=== PATIENT | female | born 1970 | race Caucasian/White ===

== ENCOUNTER 2017-09-23 10:00 | Outpatient (RCR) | payer OTHER, SELFPAY ==
--- NOTE | 2017-04-24 10:09 | HP.PTEVAL ---
Patient's Visit Information SUZY CONTRERAS is a 47 year old F referred to Physical Therapy by Zac Henriquez DR.JDIETR2 with a diagnosis of Left Frozen Shoulder. Date of Evaluation: 04/24/17 Physical Therapist: Felicitas Vazquez - Visit Plan Frequency: 2x /Week Duration: 4 Weeks Plan: Focus on left UE ROM and strength - Subjective Subjective: November 25, 2016- black lab pulled her leash and went the other way. The left shoulder didn't hurt right away but she dislocated finger lead to frozen shoulder. Shoulder started bothering her a couple of months ago. Had a cortisone injection 2 weeks ago and its better now. gave her some exercises and she started some. Worst: 07/29 Agg: movement, cold. Pain is located in the biceps to the elbow and reports sharp pains. Mostly dull and achy in the actually shoulder itself. Has arthritis- works at [employer] in [place]- is still working. Right hand dominate. If she uses her left its more for stability than lifting. Eases: heat Best: 04/30. Sleep: not disturbed anymore. No N/T in the fingers. Pain radiates up to the base of the skull- No increase in [place], blurred vision, dizziness. Very active- [place] and is always on her feet- has animals. Feels that she is 50% back to normal from injury. No x-rays or MRI of the shoulder. PMHx: none, Meds: none. - Objective Posture: FH, RS, increased guarding of the left UE. Palpation: tender along bicipital groove, deltoid, and down the tricep/bicep to the elbow. ROM: finger dexterity: WNL with ring finger exception (seeing OT), Elbow: WNL, Shoulder AROM: Flexion: 130 degrees, Abductin: 110 degrees, IR:to belt line, ER: 0 degrees. PROM: flexion: 170 degrees, Abduction: to ear, IR: to belt, ER: 10 degrees. Strength: Elbow: 4+/5, Shoulder: 4/5 in neutral position - Goals Goal 1:: Patient will be I with HEP and progression Goal Time Frame: 4-6 Weeks Goal 2:: Patient will demo full AROM of the left shoulder where deficit to ease ADL's. Goal Time Frame: 4-6 Weeks Goal 3:: Patient will report 0/10 pain for 1 week Goal Time Frame: 4-6 Weeks Goal 4:: Patient will demo 5/5 strength in UE Goal Time Frame: 4-6 Weeks - Rehabilitation Potential Physical Therapy Diagnosis: Patient presents with hypomobility- she has decreased ROM, strength and muscular endurance leading to poor posture and increased pain with ADL's. Rehabilitation Potential: Good - Anticipated Interventions Patient/Client Instruction: Educate patient on: Benefits of Fitness Program For the Purpose of:: To increase tolerance to activity/condition/position Therapeutic Exercise to Include: Strength training, Endurance training, Body mechanics, Postural training, Passive ROM, Active ROM, Scapular Strength/Stabilization For the Purpose of:: To improve muscle performance and motor function TENS: Yes Cryotherapy (ice pack, ice massage): Yes Thermo therapy (hot pack): Yes Ultrasound (thermal/non thermal): Yes For the Purpose of:: To decrease pain Thank you for the opportunity to evaluate your patient. For Medicare and Medicare HMO plans, please review the plan of care and approve it. It will need to be FAXED BACK to us at [phone] for Medicare purposes. Please let me know if there are questions or concerns regarding this plan of care. Physician Signature: Date:
--- NOTE | 2017-04-24 16:20 | HP.OTEVAL ---
Patient's Visit Information SUZY CONTRERAS is a 47 year old F, referred to Occupational Therapy by Zac Henriquez,JDIETR2, with a diagnosis of swan-neck deformity of left ring finger. Date of Evaluation: 04/24/17 Occupational Therapist: Pam Thrasher, OTR/Debbie, CHT - Subjective Subjective: Pt states she had a fall Nov 25 and suffered a left RF dislocation- placed by dr and wore finger slint for 5 days and after removing splint was unable to move her finger- and went to Dr. 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 Goal:: pt will demo a increase in left RF functional ROM to form a composite fist to perform BADLS and IADLS at a PLOF Goal:: pt will report pain no greater than 1/10 with use of left hand for composite fist and use of left with BADLS and IADLS Goal:: pt will demo understanding of orthosis use to increase soft tissue mobility- and gain functional ROM by end of 1st session. - Rehabilitation General Assessment: PT is demo with good rehab potential- pt is demo. understanding of her dx and need of her static progressive flexion strap daily. Rehabilitation Potential: Good - Anticipated Interventions Anticipated Interventions: A/AAROM/PROM, Strengthening, Triggerpoint Release, Modalities, Orthoses - Visit Plan Frequency: 1-2x /Week Duration: 6 Weeks General Plan: Therapy will initiate MT as joint mobs and PLLS to incrase pts functional PIP flex. will progress pt to PRE when appropriate ROM is gained. TEXT: Thank you for the opportunity to evaluate your patient. For Medicare and Medicare HMO plans, please review the plan of care and approve it. It will need to be FAXED BACK to us at [phone] for Medicare purposes. Please let me know if there are questions or concerns regarding this plan of care. Physician Signature: Date:
--- NOTE | 2017-05-22 09:16 | HP.OTREVAL ---
Zac Henriquez DR.JDIETR2 It has been my pleasure to treat SUZY CONTRERAS over the last 8 visits for swan-neck deformity of left ring finger. Please see the progress note below for an update on the occupational therapy plan of care! Subjective: pt states she forgot her finger braces this am- advised pt to make sure she takes both orthosis to apt Friday- advised pt to have look at orthosis- may need adj to increase pull- pt demo. understanding Objective/Function: RF MCP 0/90. RF PIP 0/35 active. RF PIP passive flex 60. 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 Goal:: pt will demo a increase in left RF functional ROM to form a composite fist to perform BADLS and IADLS at a PLOF Goal:: pt will report pain no greater than 1/10 with use of left hand for composite fist and use of left with BADLS and IADLS Goal:: pt will demo understanding of orthosis use to increase soft tissue mobility- and gain functional ROM by end of 1st session. Anticipated Interventions Anticipated Interventions: A/AAROM/PROM, Strengthening, Triggerpoint Release, Modalities, Orthoses Please do not hesitate to contact me at [phone] by phone or if you have questions or concerns regarding this new plan of care! Sincerely, Pam Thrasher, OTR/L, CHT
--- NOTE | 2017-09-23 10:00 | DT_ITS ---
This patient was seen during an EMR downtime September 22, 2017 - September 29, 2017. This patient may have a combination of paper and electronic documentation or all paper documentation. All documentation is viewable within the e-chart portion of [facility] for each patient visit.
--- NOTE | 2017-11-21 11:06 | HP.PTDCSUM ---
HP - PT D/C Summary It has been my pleasure to treat SUZY CONTRERAS under orders from Zac Henriquez, for the diagnosis of Left Frozen Shoulder for a total of 12 visit(s). Discharge Date: Please see the following information for a summary of their discharge status. - Subjective Subjective: Patient reports that her shoulder is getting better- Feels that her shoulder is 90% better. - Pain Left Shoulder Pain Intensity (Out of 10): 0 - Overall Improvement % Improvement: 90 - Objective Objective/Function: Patient was able to complete without incidence. She had no increase in s/s throughout and her ROM is WFL. At this time we will place her on hold and she can attempt HEP I. Call if any questions or concerns - Goals Goal 1:: Patient will be I with HEP and progression Goal Progress: Goal Met Goal 2:: Patient will demo full AROM of the left shoulder where deficit to ease ADL's. Goal Progress: Goal Met Goal 3:: Patient will report 0/10 pain for 1 week Goal Progress: Goal Met Goal 4:: Patient will demo 5/5 strength in UE Goal Progress: Goal Met - Plan Plan: Hold will attempt HEP - D/C Information If there are questions or concerns regarding this patient's physical therapy, please feel free to call me at [phone]. Thank you for the referral of this patient. Sincerely, Felicitas Vazquez
--- NOTE | 2017-12-17 08:47 | HP.OT.NRP ---
HP - Discharge Summary - Patient Information SUZY CONTRERAS was seen in my office for initial evaluation on 04/24/17. The following Plan of Care was established for this patient: Initial Frequency: 1-2x /Week Initial Duration: 6 Weeks Plan: will cont to adj orthosis as needed to gain best outcome with functional ROM - Anticipated Interventions Anticipated Interventions: A/AAROM/PROM, Strengthening, Triggerpoint Release, Modalities, Orthoses This patient was last seen in our office 09/23/17. Pertinent comments regarding their Occupational therapy will appear below: pt was seen for 20 visits in OT. pt was progressing well and has been working at gaining ROM. Spoke with pt on the phone today and she said her finger moves well once she can get it moving. pt states she feels she will be fine with her HEP. Pt d/c at this time. At this point I will be discontinuing this patient from occupational therapy. I would be happy to see this patient again in the future if found appropriate by the physician. Thank you! Pam Thrasher, OTR/L, CHT
== END 2017-09-23 19:00 | disposition home or self-care (01) ==
LOC: OT 10:00
PROVIDERS: Family Provider Family Medicine; PCP Family Medicine; Visit Provider Orthopaedic Surgery
DX: M20.032 Swan-neck deformity of left finger(s) (principal); M75.02 Adhesive capsulitis of left shoulder
CPT/HCPCS: 97018; 97035; 97110; 97140; 97162; 97166; 97530; 97760; 97763

== ENCOUNTER 2022-08-15 10:19 | Emergency (ER) | payer OTHER, SELFPAY ==
[2022-08-15 10:19] VITALS: BP 172/111; PULSE 99; RESP 14; TEMP 35.5; O2SAT 98; BMI 19.1
--- NOTE | 2022-08-15 11:05 | ED.VIS.LOWEX ---
HPI History of Present Illness Chief Complaint: Lower Extremity Injury Detail of Chief Complaint: Injury to left knee yesterday Informant: patient and spouse/S.O. Occured/Mechanism Mechanism/Context: Yes blunt trauma Comment: Suspect hyperextension mechanism of injury Onset/Context/Timing Context: Sudden Onset Timing: Continuous Quality of Pain: Dull, Aching and Throbbing Location: Left knee Current Severity: Mild Maximum Severity: Severe Worsened by: Any attempt to move or weight-bear Relieved by: Nothing Associated Symptoms Associated Symptoms: Positive for Loss of Funtion; Negative for Parasthesia or Weakness Narrative Narrative: Patient is a healthy 52-year-old woman on no medication with no allergies who presents with left knee pain and swelling after apparent hyper extensive mechanism injury. She arrived using crutches. She denies paresthesia, anesthesia medics. She denies prior injury to the knee. Tetanus Immunization: Unknown Prior similar symptoms: No Recent Illness/Hospitalization: No PFSH PFSH Medical History no medical history no medical history Home Medications oxycodone-acetaminophen 5 mg-325 mg tablet 1 tab PO Q6H PRN PRN pain 5 days #20 TABLETS 08/15/22 [Rx Last Taken Unknown] Allergy/AdvReac Type Severity Reaction Status Date / Time No Known Allergies Allergy Verified 08/15/22 10:21 Surgical History no surgical history no surgical history Social History (Updated 08/15/22 @ 11:[address] Ricki Raines MD) household members: spouse Smoking Status: Never smoker ROS ROS ED Musculoskeletal Musculoskeletal: Reports other Details: Per HPI ; Denies arthralgias, back pain, myalgias or neck pain Neurologic Neurologic: Reports other Details: Per HPI ; Denies paresthesias or weakness Hematologic/Lymphatic Hematologic/Lymphatic: Denies easy bleeding or easy bruising EXAM Physical Exam Const Vital Signs: 08/15/22 10:19 Temperature 95.9 F L Temperature Source Temporal Pulse Rate 99 Respiratory Rate 14 Blood Pressure 172/111 H Blood Pressure Mean 131 Pulse Ox 98 Oxygen Delivery Method Room Air Positive well nourished and well developed General Appearance ED: well developed; Negative for NAD HEENT normocephalic and atraumatic Eyes Eyes Narrative: Pupils equal round reactive to light. Extraocular muscles are intact. Sclera there is no normal. Neck full ROM and supple Resp normal respiratory effort Cardio regular rate and regular rhythm Extremity Negative for normal to inspection or full ROM Extremity Narrative: Patient able to extend and hold against gravity. He is able to flex to 160 degrees. Varus and valgus stress testing elicits slight laxity lateral collateral ligament compared to the uninjured side. The patella is not ballotable. There is a significant effusion. She has no joint line tenderness. She complains of pain in the popliteal fossa. Unable to perform Vida's test or modified Erna's test. DP and PT pulse are palpable. General Extremety ED: Yes weight-bearing difficulty General Extremity: weight-bearing difficulty Neuro oriented x3, CN's II-XII intact bilaterally and moves all extremities Sensorium / Orientation: alert Psych mental status grossly normal Skin no wounds Lesions: no lesions Rashes: no rashes MDM MDM MDM Narrative Medical decision making narrative: She will toPatient with significant traumatic effusion. Suspect patient has tear of her ACL and possible area of her lateral collateral ligament. Patient was medicated with morphine prior to imaging. She will refer to Dr. Steve who is on-call for Ortho since she has not seen an orthopedist in the area. History & Record Review Additional record(s) reviewed:: Prior inpatient record and No prior records Radiography Chest X-Ray - ED: Read by ED Physician (4 view x-ray of the knee reveals a compression fracture lateral tibial plateau. There is significant effusion noted. There is no other abnormality noted on my independent review and interpretation at 1216.) Diagnostic Testing: Clinical Impression(s) from Imaging Studies Knee X-Ray 08/15/22 11:38 IMPRESSION: 1. Acute impaction fracture of the lateral tibial plateau and moderate size joint effusion Electronically Signed: Ulysses Moore MD at 12:23 EDT Reading Location ID and State: [facility] / [place] , Service support , Management Discussion w/another healthcare provider: Skiver Box Toe (Consult to orthopedics. Plan pain medicine, knee immobilizer, crutches nonweightbearing follow-up as outpatient.) Discharge Plan Triage Chief Complaint: Lower Extremity Injury ED Provider: Ricki Raines Dx/Rx/DC Orders Clinical Impression: Closed fracture of lateral portion of left tibial plateau, Traumatic effusion of knee joint Instructions: ED Fracture, Knee Prescriptions: New oxycodone-acetaminophen [oxycodone-acetaminophen] 5-325 mg tablet 1 tab PO Q6H PRN PRN (Reason: pain) 5 Days Qty: 20 0RF Primary Care Provider: Manohar Morales Referrals: Ketan Steve DO [Med Staff - Active Staff] - 5-7 Days Manohar Morales MD [Primary Care Provider] - Activity Restrictions/Additional Instructions: 1. Where knee immobilizer during the day 2. You are to put no weight on your left lower extremity (nonweightbearing) 3. Apply ice 6-10 times a day 4. Take the oxycodone you were prescribed as needed for pain Disposition Disposition: Home, Self Care
[2022-08-15] MEDS: Ondansetron 4 MG/2 ML Vial IV (11:11)
[2022-08-15] MEDS: Morphine 4 MG/ML Syringe IV (11:12)
--- NOTE | 2022-08-15 11:38 | RAD_ITS ---
STUDY: X-RAY - LEFT KNEE REASON FOR EXAM: Female, 52 years old. Injury/Pain TECHNIQUE: 4 view(s) of the knee. COMPARISON: None. FINDINGS: There is an acute mild impaction fracture of the lateral tibial plateau with slight depression of the articular surface and minimal cortical offset. A moderate size joint effusion is also present. Normal visualized distal femur. Normal visualized proximal fibula. Normal proximal tibiofibular articulation. Normal medial femorotibial compartment. Normal lateral femorotibial compartment. Normal patellofemoral articulation. The soft tissue structures are unremarkable. RAD/Knee 4 or More Views IMPRESSION: 1. Acute impaction fracture of the lateral tibial plateau and moderate size joint effusion Electronically Signed: Ulysses Moore MD at 12:23 EDT ,
== END 2022-08-15 13:09 | disposition home or self-care (01) ==
PROVIDERS: Emergency Provider Emergency Medicine; PCP Family Medicine; Visit Provider Emergency Medicine
DX: S82.145A Nondisplaced bicondylar fracture of left tibia, initial encounter for closed fracture (principal); M25.462 Effusion, left knee; X58.XXXA Exposure to other specified factors, initial encounter
CPT/HCPCS: 73564; 96374; 96375; 99284; J2405